=== PATIENT | female | born 1965 ===

== ENCOUNTER 2019-10-06 06:34 | Day surgery (SDC) | payer BC ==
[~2019-10-06 06:34] MED LIST: Lactated Ringers 1,000 ML IV SCH
[2019-10-06] MEDS ORDERED: Lidocaine 2% 5 ML SDV ONE (07:05)
[2019-10-06] MEDS ORDERED: fentaNYL 100 MCG/2 ML SDV ONE (07:06)
[2019-10-06] MEDS ORDERED: Propofol 200 MG/20 ML SDV ONE ×2 (07:06→08:07)
--- NOTE | 2019-10-06 07:24 | PCM.PREANE ---
Preanesthetic Assessment - Anesthesia/Transfusion/Family Hx Anesthesia History: Prior Anesthesia Reaction Other Type of Anesthesia Reaction Comment: felt SOB when waking up -requests O2 when she wakes up Family History of Anesthesia Reaction: No Transfusion History: No Prior Transfusion(s) Intubation History: Unknown - Review of Systems General: No Symptoms Pulmonary: No Symptoms Cardiovascular: No Symptoms Gastrointestinal: Hematochezia (occasional), Other (h/o colon polyps 4 years ago) Neurological: No Symptoms Other: Reports: None - Physical Assessment NPO Status Date: 10/05/19 NPO Status Time: 23:00 Vital Signs: Last Vital Signs Temp 36.3 C 10/06/19 06:45 Pulse 86 10/06/19 06:45 Resp 16 10/06/19 06:45 BP 130/87 10/06/19 06:45 Pulse Ox 94 L 10/06/19 06:45 Height: 5 ft 4 in Weight: 109.316 kg ASA Class: 2 Mental Status: Alert & Oriented x3 Dentition: Reports: Normal Dentition Thyro-Mental Finger Breadths: 3 Mouth Opening Finger Breadths: 2 (small mouth) ROM/Head Extension: Full Lungs: Clear to Auscultation, Normal Respiratory Effort Cardiovascular: Regular Rate, Regular Rhythm - Allergies Allergies/Adverse Reactions: Allergies Allergy/AdvReac Type Severity Reaction Status Date / Time No Known Allergies Allergy Verified 10/02/19 12:18 - Blood Blood Available: No - Anesthesia Plan Pre-Op Medication Ordered: None - Acknowledgements Anesthesia Type Planned: MAC Pt an Appropriate Candidate for the Planned Anesthesia: Yes Alternatives and Risks of Anesthesia Discussed w Pt/Guardian: Yes Pt/Guardian Understands and Agrees with Anesthesia Plan: Yes PreAnesthesia Questionnaire HEENT History: Reports: Other (See Below) Other HEENT History: wears glasses Gastrointestinal History: Reports: Colon Polyp Genitourinary History: Reports: Renal Calculus Other Genitourinary History: hx of passing kidney stones Musculoskeletal History: Reports: Back Pain, Chronic Neurological History: Reports: Migraines, Other (See Below) Other Neuro History: hx of motion sickness Psychiatric History: Reports: Anxiety, Depression Endocrine/Metabolic History: Reports: Hypothyroidism, Obesity/BMI 30+ (BMI 41.4) - Past Surgical History Head Surgeries/Procedures: Reports: None GI Surgical History: Reports: Cholecystectomy, Colonoscopy (4 years ago) Female Surgical History: Reports: Hysterectomy, Tubal Ligation - SUBSTANCE USE Smoking Status *Q: Never Smoker Recreational Drug Use History: No - HOME MEDS Home Medications: Home Meds DULoxetine HCl [Cymbalta] 30 mg PO DAILY 10/02/19 [History] Levothyroxine Sodium [Synthroid] 100 mcg PO DAILY 10/02/19 [History] Mometasone Furoate [Nasonex] 1 spray NASBOTH DAILY PRN 10/02/19 [History] Montelukast [Singulair] 10 mg PO DAILY 10/02/19 [History] buPROPion HCL [Bupropion Xl] 300 mg PO DAILY 10/02/19 [History] traMADol HCl [Tramadol HCl] 50 mg PO ASDIRECTED PRN 10/02/19 [History] traZODone HCl [Trazodone HCl] 25 mg PO BEDTIME PRN 10/02/19 [History] - CURRENT (IN HOUSE) MEDS Current Meds: Current Medications Lactated Ringer's (Ringers, Lactated) 1,000 mls @ 125 mls/hr IV ASDIRECTED JAOVN Last Admin: 10/06/19 07:00 Dose: 125 mls/hr Documented by: Discontinued Medications Fentanyl (Sublimaze) Confirm Administered Dose 100 mcg .ROUTE .STK-MED ONE Stop: 10/06/19 07:07 Lidocaine (Xylocaine-Mpf 2%) Confirm Administered Dose 5 ml .ROUTE .STK-MED ONE Stop: 10/06/19 07:06 Propofol (Diprivan 20 Ml) Confirm Administered Dose 400 mg .ROUTE .STK-MED ONE Stop: 10/06/19 07:07
[2019-10-06] MEDS ORDERED: Glycopyrrolate 0.2 MG/ML SDV ONE ×2 (07:58→08:03)
[2019-10-06] MEDS ORDERED: Midazolam 1 MG/ML 2 ML SDV ONE (08:02)
--- NOTE | 2019-10-06 08:20 | PCM.OPNOTE ---
- General Post-Op/Procedure Note Date of Surgery/Procedure: 10/06/19 Operative Procedure(s): Colonoscopy Pre Op Diagnosis: Personal history of colon polyps. Family history of colon cancer. Post-Op Diagnosis: Sigmoid diverticulosis. Internal hemorrhoids. Anesthesia Technique: MAC (ASA II) Primary Surgeon: Jj Bell Police Sergeant: Nuzhat Marmolejo Condition: Good Free Text/Narrative:: DICTATION [id number] CPT CODE 83710
[2019-10-06] MEDS ORDERED: Lactated Ringers 1,000 ML IV SCH (08:30)
--- NOTE | 2019-10-06 08:54 | PCM.POSTAN ---
POST ANESTHESIA ASSESSMENT - MENTAL STATUS Mental Status: Alert, Oriented - VITAL SIGNS Vital Signs: Last Vital Signs Temp 36.3 C 10/06/19 06:45 Pulse 102 H 10/06/19 08:35 Resp 16 10/06/19 08:35 BP 120/79 10/06/19 08:35 Pulse Ox 93 L 10/06/19 08:35 - RESPIRATORY Respiratory Status: Respiratory Rate WNL, Airway Patent, O2 Saturation Stable - CARDIOVASCULAR CV Status: Pulse Rate WNL, Blood Pressure Stable - GASTROINTESTINAL GI Status: No Symptoms - PAIN Pain Score: 0 - POST OP HYDRATION Hydration Status: Adequate & Stable - OBSERVATIONS Free Text/Narrative:: No anesthesia problems
--- NOTE | 2019-10-06 08:55 | PCM48HPAN ---
Post Anesthesia Note - EVALUATION WITHIN 48HRS OF ANESTHETIC Vital Signs in Normal Range: Yes Patient Participated in Evaluation: Yes Respiratory Function Stable: Yes Airway Patent: Yes Cardiovascular Function Stable: Yes Hydration Status Stable: Yes Pain Control Satisfactory: Yes Nausea and Vomiting Control Satisfactory: Yes Mental Status Recovered: Yes Vital Signs: Last Vital Signs Temp 36.3 C 10/06/19 06:45 Pulse 102 H 10/06/19 08:35 Resp 16 10/06/19 08:35 BP 120/79 10/06/19 08:35 Pulse Ox 93 L 10/06/19 08:35 - COMMENTS/OBSERVATIONS Free Text/Narrative:: No anesthesia problems
--- NOTE | 2019-10-06 16:38 | OR ---
SURGEON: Jj Bell M.D. DATE OF PROCEDURE: 10/06/2019 OPERATION PERFORMED: Colonoscopy. PRIMARY SURGEON: Jj Bell MD PROFESSIONAL DEVELOPMENT INSTRUCTOR: Nursing Service Administrator: LUBA Salmeron student. ANESTHESIA: MAC. ASA CLASSIFICATION: II. PREOPERATIVE DIAGNOSES: 1. Personal history of colon polyps. 2. Family history of colon cancer. POSTOPERATIVE DIAGNOSES: 1. Mild sigmoid diverticulosis. 2. Mild internal hemorrhoids. DESCRIPTION OF PROCEDURE: The patient was taken to the endoscopy room and positioned on the endoscopy table in the left lateral decubitus position. Time-out was called for appropriate identification of the patient and procedure. Monitored anesthesia care was provided. The colonoscope was inserted into the rectum and advanced with moderate difficulty to the cecum. The cecum was identified by internal landmarks and external pressure. The colonoscope was retroflexed to visualize the ascending colon from below, then straightened and slowly withdrawn. The cecum, ascending colon, hepatic flexure, transverse colon, splenic flexure, and descending colon showed no tumors, polyps, diverticula, or angiodysplastic changes. A few small diverticula were noted in the sigmoid colon. The colonoscope was then withdrawn to the rectum and retroflexed to visualize the anal orifice from above. No tumors or polyps were seen. Minor internal hemorrhoids were noted. The colonoscope was then straightened, the rectum aspirated, and the colonoscope removed. The patient tolerated the procedure well and was taken to recovery room in stable condition. FLORENCE / DINORAH /[id number]
== END 2019-10-06 09:07 | disposition home or self-care (01) ==
LOC: MW.SDS 06:34
PROVIDERS: ATTEND Surgery
DX: Z12.11 Encounter for screening for malignant neoplasm of colon (principal); K57.30 Diverticulosis of large intestine without perforation or abscess without bleeding; K64.8 Other hemorrhoids; F41.9 Anxiety disorder, unspecified; F32.9 Major depressive disorder, single episode, unspecified; E03.9 Hypothyroidism, unspecified; E66.9 Obesity, unspecified; G89.29 Other chronic pain; Z80.0 Family history of malignant neoplasm of digestive organs; Z86.010 Personal history of colon polyps; Z79.899 Other long term (current) drug therapy; Z79.890 Hormone replacement therapy; Z87.442 Personal history of urinary calculi; Z98.51 Tubal ligation status; Z90.710 Acquired absence of both cervix and uterus; Z72.89 Other problems related to lifestyle; Z68.41 Body mass index [BMI] 40.0-44.9, adult; Z90.49 Acquired absence of other specified parts of digestive tract
CPT/HCPCS: 45378; J2001; J2250; J2704; J3010; J3490; J7120